=== PATIENT | male | born 1985 | race Two or more races ===

== ENCOUNTER 2025-01-02 09:24 | Emergency (ER) | payer MEDICAID, SELFPAY ==
[2025-01-02 09:36] VITALS: BP 133/88; PULSE 98; RESP 16; TEMP 36.6; O2SAT 100; BMI 24.3
--- NOTE | 2025-01-02 09:58 | PD.EDRME ---
Rapid Medical Screening Exam RME Arrival date/time: 01/02/25 09:24 This is a 39-year-old male history of diabetes presents to the emergency department with complaints of nausea and vomiting x 2 days. Does report he has been drinking approximately a sixpack per day. I have greeted and performed a focused initial assessment of this patient. Initial appropriate labs ordered at this time. A comprehensive ED assessment and evaluation of the patient and analysis of all test and completion of medical decision making process will be conducted by additional ED provider. Chief Complaint: Nausea/Vomiting/Diarrhea Time Seen by Provider: 01/02/25 09:32 Vital signs: Vital Signs Temperature 97.9 F 01/02/25 09:36 Pulse Rate 98 01/02/25 09:36 Respiratory Rate 16 01/02/25 09:36 Blood Pressure 133/88 H 01/02/25 09:36 Pulse Oximetry (%) 100 01/02/25 09:36 Oxygen Delivery Method Room Air 01/02/25 09:36
--- NOTE | 2025-01-02 09:59 | XR_ITS ---
Examination: Abdomen sonogram, Limited Date and time of exam: January 02, 2025 1013 hours INDICATIONS: Nausea vomiting beginning 2 days ago Technique: Real-time campbell scale transabdominal sonographic images of the upper abdomen obtained. Findings: Normal gallbladder Normal common bile duct 0.5 cm Pancreatic head 2.5 cm Liver 14.7 cm fatty infiltration no focal liver lesions Normal hepatopedal portal venous flow Patent IVC IMPRESSION: Normal gallbladder Liver normal size fatty infiltration
[2025-01-02] MEDS: ONDANSETRON ODT 4 MG TABRAP PO (10:03)
[2025-01-02 10:14] LABS: Basophils # (Auto) 0.0 Thou/mm3 (0.0-0.2); Basophils % (Auto) 1 % (0-2.5); Eosinophils # (Auto) 0.2 Thou/mm3 (0.0-0.5); Eosinophils % (Auto) 3 % (0-10); Hematocrit 43.2 % (41.0-53.0); Hemoglobin 15.8 g/dL (13.5-16.0); Immature Granulocytes Auto 0.03 Thou/mm3 (0.00-0.00); Lymphocytes # (Auto) 0.8 Thou/mm3 (1.0-4.8); Lymphocytes % (Auto) 13 % (10-50); Mean Corpuscular HGB Conc 36.6 g/dl (31.0-37.0); Mean Corpuscular Hemoglobin 30.2 pg (25.0-35.0); Mean Corpuscular Volume 82 fL (80-100); Monocytes # (Auto) 0.6 Thou/mm3 (0.0-0.8); Monocytes % (Auto) 10 % (0-12); Neutrophils # (Auto) 4.9 Thou/mm3 (1.8-7.7); Neutrophils % (Auto) 74 % (37-80); Nucleated Red Blood Cell # 0.00 Thou/mm3 (0.00-0.00); Nucleated Red Blood Cell % 0 /100 WBC (0); Platelet Count 142 Thou/mm3 (140-440); RDW Standard Deviation 39.7 fL (35.1-43.9); Red Blood Count 5.24 Miln/mm3 (4.50-5.90); White Blood Count 6.7 Thou/mm3 (3.8-10.6)
[2025-01-02 10:27] LABS: Alanine Aminotransferase 30 U/L (10-49); Albumin, Serum 4.4 gm/dL (3.5-5.0); Albumin/Globulin Ratio 1.5 (1.2-2.2); Alkaline Phosphatase 159 U/L (46-116); Anion Gap 8 (7-16); Aspartate Amino Transferase 19 U/L (0-34); BUN/Creatinine Ratio 9 Ratio (12-20); Bilirubin,Total 0.5 mg/dL (0.3-1.2); Blood Urea Nitrogen 8 mg/dL (9-23); Calcium 9.0 mg/dL (8.3-10.6); Calcium (Corrected) 9.0 mg/dL (8.5-10.1); Carbon Dioxide 29.3 mMol/L (20.0-31.0); Chloride 100 mMol/L (98-107); Creatinine (Component) 0.9 mg/dL (0.6-1.3); Estimated Creatinine Clearance 88.7 mL/min (>60); Globulin 3.0 gm/dL (2.3-3.5); Glucose 273 mg/dL (74-106); Lipase 39 U/L (12-53); Osmolality,Calculated 282 (275-295); Potassium 4.5 mMol/L (3.4-5.1); Sodium 137 mMol/L (136-145); Total Protein 7.4 gm/dL (5.7-8.2); eGFR > 60 See Note
[2025-01-02 10:31] LABS: Collection Type, Urine Clean Catch
[2025-01-02 10:31] LABS: Glucose Estimated Average 306 mg/dL (80-131); Hemoglobin A1C 12.3 % Hgb (4.8-6.0)
[2025-01-02 11:13] LABS: Bacteria,Urine Rare; Bilirubin,Urine Negative (Negative); Blood,Urine Negative (Negative); Budding Yeast,Urine Present; Clarity,Urine Clear (Clear/Hazy); Color,Urine Yellow (Lt Yel-Yel); Glucose, Urine 4+ (Negative); Ketones,Urine 1+ (Negative); Leukocyte Esterase,Urine Positive (Negative); Nitrite,Urine Negative (Negative); PH,Urine 6.0 (5.0-7.0); Protein,Urine Trace (Neg - Trace); RBC,Urine 16 /hpf (0-3); Specific Gravity,Urine 1.035 (1.001-1.035); Squamous Epithelial Cell,Urine 7 /hpf (0-5); Urobilinogen,Urine Negative mg/dL (0.0-1.0); WBC,Urine 13 /hpf (0-5)
--- NOTE | 2025-01-02 12:12 | EDNOTE_ITS ---
Nausea/Vomit./Diarrhea-RME/HPI General Chief complaint: Nausea/Vomiting/Diarrhea Stated complaint: Vomiting X 2 days Time Seen by Provider: 01/02/25 09:32 Source: patient Arrival date/time: 01/02/25 09:24 This is a 39-year-old male who presents to the Emergency department with complaints of nausea no vomiting. Patient does report he has diabetes mellitus not compliant with metformin. Reports does not follow up with his PCP as directed. Also reports he was recently in a relationship breakup in which he did use methamphetamines 2 days prior. Has not been taking care of his health as directed. complaints of nausea no emesis. No abdominal pain or chest pain no fever no chills no lethargy no decreased appetite. Mode of arrival: ambulatory RME / HPI RME / HPI Narrative: 01/02/25 09:24 This is a 39-year-old male history of diabetes presents to the emergency department with complaints of nausea and vomiting x 2 days. Does report he has been drinking approximately a sixpack per day. I have greeted and performed a focused initial assessment of this patient. Initial appropriate labs ordered at this time. A comprehensive ED assessment and evaluation of the patient and analysis of all test and completion of medical decision making process will be conducted by additional ED provider. Related Data Previous Rx's ?Medication ?Instructions ?Recorded ibuprofen 800 mg tablet 800 mg PO Q6H PRN pain #60 t abs 02/22/20 ciprofloxacin HCl 500 mg tablet 500 mg PO BID #14 tabs 12/10/22 (Cipro) ibuprofen 800 mg tablet 800 mg PO TID PRN pain #30 t abs 12/10/22 albuterol sulfate 90 mcg/actuation 2 inh inhalation Q4 H PRN 02/11/24 aerosol inhaler (Proventil HFA) bronchospasm #6.7 gram s doxycycline hyclate 100 mg capsule 100 mg PO QDAY #14 caps 02/11/24 promethazine-DM 6.25 mg-15 mg/5 mL 5 ml PO .bid #120 m L 02/11/24 oral syrup empagliflozin 25 mg tablet 25 mg PO QAM #90 tabs 01/02 (Jardiance) insulin glargine 100 unit/mL (3 15 unit (0.15 mL) subc ut QAM #15 mL 01/02/25 mL) subcutaneous pen (Lantus Solostar U-100 Insulin) Allergies Allergy/AdvReac Type Severity Reaction Status Date / Time No Known Allergies Allergy Verified 01/02/25 09:27 Review of Systems Review of Systems Systems Reviewed: All systems reviewed, normal except as documented Narrative Review of Systems: Gen: No fever, no chills, no weight loss EYES: No discharge, no visual changes, no pain HEENT: No ear pain, no congestion, no sore throat PULM: No shortness of breath, no cough, no congestion CV: No chest pain, no dyspnea on exertion, no palpitations GI: ++nausea, no vomiting, no diarrhea, no pain, no constipation : No frequency, no urgency,? no dysuria Musc/skel: No joint pain, no back pain Skin: No rash? Psyc: No hallucinations, no depression Heme/Lymph: No easy bleeding or bruising tendencies Neuro: No weakness, no headache ED Exam Narrative Physical exam: General: Sittiing in Exam table in no acute distress, answering questions appropriately HENT: normocephalic, atraumatic, EOMI, PERRLA, moist mucous membranes Chest: chest wall is nontender Cardiac: regular rate and rhythm, normal S1 and S2, no murmurs, rubs, or gallops, capillary refill ?2 seconds Pulmonary: clear to auscultation bilaterally, no wheezing, crackles, or rhonchi Abdominal: active bowel sounds, soft, nontender, nondistended Neuro: A&OX3, CN II-XII intact, sensation grossly intact bilaterally in UE and LE. Skin: no rashes, no ecchymosis Ext: no lower extremity edema Course Quality Measures none Orders Category Date Time Status US abdomen limited Stat Exams 01/02/25 09:59 Completed A1C [Glycohemoglobin w (eAG)] Stat Lab 01/02/25 10:04 Completed CBC Stat Lab 01/02/25 10:04 Completed Comprehensive Metabolic Panel Stat Lab 01/02/25 10:04 Completed Lipase Stat Lab 01/02/25 10:04 Completed Urinalysis Stat Lab 01/02/25 10:15 Completed Ondansetron Odt [Zofran Odt] Med 01/02/25 09:54 Discontinued 4 mg PO X1 ONE Vital Signs Vital signs: Vital Signs Temperature 97.9 F 01/02/25 09:36 Pulse Rate 98 01/02/25 09:36 Respiratory Rate 16 01/02/25 09:36 Blood Pressure 133/88 H 01/02/25 09:36 Pulse Oximetry (%) 100 01/02/25 09:36 Oxygen Delivery Method Room Air 01/02/25 09:36 Nausea/Vomiting/Diarrhea [facility] Narrative [facility] Narrative:: This is a 34-year-old male who presented to the emergency department for evaluation of nausea. He has a recent history of substance abuse, including alcohol and possible misuse his medications., as well as poorly controlled diabetes. The patient has a history of noncompliance with medications and has declined close follow-up with his primary care provider. On evaluation, the patient is awake, alert, and hemodynamically stable. Laboratory results reveal an HbA1c >12%, with normal eGFR and kidney function. There is no evidence of diabetic ketoacidosis (DKA) or ketosis at this time. It is likely that the patient?s symptoms of malaise and nausea are secondary to poorly controlled diabetes. He was advised to continue Metformin 1000 mg twice daily. Jardiance was initiated, and insulin glargine (Lantus) 15 units daily was added to better manage his glycemic control. The patient is stable for discharge and does not meet criteria for admission. He was counseled on the importance of medication adherence and advised to follow up with his primary care provider within 48 hours. He was instructed to return to the emergency department for any worsening symptoms, including vomiting, dehydration, confusion, or signs of DKA. Patient data External records reviewed:: [facility] previous records Clinical information provided by:: patient Social determinants that could affect healthcare access:: substance use Patient has the following chronic illnesses:: DM uncontrolled, hyperglycemia How is presenting disease/condition affected by chronic disease/condition?: exacerbated by Evaluation data The following diagnostics were reviewed and interpreted by me:: lab results Lab and/or radiology exams considered but not ordered:: yes Interpretation Summary: see [facility] Medications / Prescriptions Medications / Prescriptions considered but not ordered:: yes jaimie pt refuses insulin Medication administrations:: Medication Administration History Discontinued Medications Ondansetron HCl (Ondansetron Odt 4 Mg Tabrap) 4 mg PO X1 ONE Stop: 01/02/25 09:55 Last Admin: 01/02/25 10:03 Dose: 4 mg Documented By: DOROTHY medicatios administered Consultations Consultation(s) initiated? (list below): No Diagnosis Nausea Differential Diagnosis: gastroenteritis, drug-induced nausea and vomiting, dehydration and other (Hyperglycemia, drug abuse. ) Most likely diagnosis given after review of the tests above:: Uncontrolled diabetes with hyperglycemia Admission Indicated Admission indicated?: not indicated Admission Request Was there a request for admission?: No Disposition Plan Disposition Plan: Discharge Discharge Attestation Discharge Attestation: The patient and all family members were given an opportunity to ask questions and understood the discharge instructions. Discharge instructions specifically effects, indications for sooner follow up or return to the emergency department, and the expected course of current diagnosis. Patient condition: Stable Discharge Plan Plan Patient Disposition: HOME (Self Care) Patient condition on transfer: Stable Prescriptions/Referrals Prescriptions/Med Rec: New Jardiance 25 mg tablet 25 mg PO QAM Qty: 90 0RF insulin glargine [Lantus Solostar U-100 Insulin] 100 unit/mL (3 mL) insulin pen 15 unit subcut QAM Qty: 15 0RF No Action ibuprofen 800 mg tablet 800 mg PO Q6H PRN (Reason: pain) Qty: 60 0RF doxycycline hyclate 100 mg capsule 100 mg PO QDAY Qty: 14 0RF promethazine-DM 6.25-15 mg/5 mL syrup 5 ml PO .bid Qty: 120 0RF albuterol sulfate [Proventil HFA] 90 mcg/actuation HFA aerosol inhaler 2 inh inhalation Q4H PRN (Reason: bronchospasm) Qty: 6.7 0RF ciprofloxacin HCl [Cipro] 500 mg tablet 500 mg PO BID Qty: 14 0RF ibuprofen 800 mg tablet 800 mg PO TID PRN (Reason: pain) Qty: 30 0RF Referrals: Bright Asher MD [Primary Care Provider] - In 1 week Problem List Clinical Impression: Poorly controlled diabetes mellitus, Nausea Patient/Caregiver Discharge Instructions Discharge Activity: activity as tolerated Education Materials: ED Diabetes with High Blood Sugar Additional Instructions: It is very important that you follow-up with your primary doctor as soon as possible. - Please continue to take metformin as directed. - Start Jardiance every day. - Start long acting insulin 15 units every day Your A1c is above 12. This indicates your diabetes is poorly controlled remember this can affect various organs in your body especially your kidneys. Return to the emergency department with any worsening symptoms change in condition. Print Language: Iranian Stand Alone Forms: Lacy Award Info., Work/School Release, Patient Portal Info Letter PA/RESERVOIR ENGINEERING ADVISOR Supervising Physician PA/RESERVOIR ENGINEERING ADVISOR Supervising Physician: Dr. Walters
== END 2025-01-02 12:45 | disposition home or self-care (01) ==
PROVIDERS: Nurse Practitioner Primary Care; Emergency Provider Emergency Medicine; PCP Family Medicine
DX: E11.65 Type 2 diabetes mellitus with hyperglycemia (principal); T38.3X6A Underdosing of insulin and oral hypoglycemic [antidiabetic] drugs, initial encounter; Z91.128 Patient's intentional underdosing of medication regimen for other reason; Z79.84 Long term (current) use of oral hypoglycemic drugs
CPT/HCPCS: 36415; 76705; 80053; 81001; 83036; 83690; 85025; 99283; Q0162